=== PATIENT | female | born 1985 | race American Indian/Alaskan Native ===

== ENCOUNTER 2020-10-15 12:42 | Emergency (ER) | payer SELFPAY ==
[2020-10-15 13:29] VITALS: BP 117/84
[2020-10-15 14:34] LABS: Basophils % (Auto) 0.4 % (0.0-1.8); Eosinophils % (Auto) 0.4 % (0.0-4.3); Hematocrit 34.5 % (30.3-42.9); Hemoglobin 11.3 gm/dl (10.1-14.3); Lymphocytes # (Auto) 1.3 K/mm3 (1.2-5.4); Lymphocytes % (Auto) 22.8 % (13.4-35.0); Mean Corpuscular HGB Conc 33 % (30-34); Mean Corpuscular Volume 87 fl (79-97); Monocytes # (Auto) 0.4 K/mm3 (0.0-0.8); Monocytes % (Auto) 7.4 % (0.0-7.3); Platelet Count 276 K/mm3 (140-440); Red Blood Count 3.99 M/mm3 (3.65-5.03)
[2020-10-15 14:51] LABS: Red Cell Distribution Width 20.3 % (13.2-15.2)
[2020-10-15 14:53] LABS: Alanine Aminotransferase 6 units/L (7-56); Blood Urea Nitrogen 11 mg/dL (7-17); Calcium 8.8 mg/dL (8.4-10.2); Hemolysis Index 3
[2020-10-15 14:59] LABS: BUN/Creatinine Ratio 16
[2020-10-15 15:28] LABS: INR 1.04 (0.87-1.13); Partial Thromboplastin Time 24.7 Sec. (24.2-36.6)
[2020-10-15] MEDS ORDERED: SODIUM CHLORIDE 0.9% 1000 ML 1,000 ML IV ONE (15:40)
[2020-10-15] MEDS ORDERED: KETOROLAC 30 MG/1 ML INJ IV ONE (15:40)
--- NOTE | 2020-10-15 15:41 | Emergency Department Report ---
ED General Adult HPI - General Chief complaint: Dizziness Stated complaint: HEADACHE,DIZZY,PAIN IN BACK Time Seen by Provider: 10/15/20 14:06 Source: patient, family Mode of arrival: Ambulatory Limitations: No Limitations - History of Present Illness Initial comments: 35-year-old female with a past medical history of migraine headaches presents to the ER today with complaints of not feeling well. Patient states that she has been feeling well for the past 2 days. She complains mainly of lower back pain, migraines, intermittent dizziness (spinning sensation) and shortness of breath. Patient reports a history of migraines, but she states that she has not a flareup in a while. She used to be on medications for it but she does not recall the name of the medications. She denies any recent head injury. She reports pain underneath her left ribs worse with palpation and movement but she denies any cough, wheezing, URI symptoms, fever, chills, abdominal pain, nausea, vomiting, UTI symptoms. She denies any calf pain, or LE swelling. She denies any recent travel, or ill contacts. She states that her last menstrual cycle was September 29. She is not currently on control. 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 She states she drinks lots of water. MD Complaint: Migraine headache/low back/dizzy/shortness of breath -: days(s) (2) - Related Data Previous Rx's Medication Instructions Recorded Last Taken Type Butalb/Acetamin/Caff 50-325-40 1 each PO Q4H PRN #12 tablet 10/15/20 Unknown Rx [Fioricet 50-325-40] Ketorolac [Toradol] 10 mg PO Q6H PRN #20 tablet 10/15/20 Unknown Rx methOCARBAMOL [Robaxin TAB] 750 mg PO Q8H PRN #30 tablet 10/15/20 Unknown Rx Allergies Allergy/AdvReac Type Severity Reaction Status Date / Time No Known Allergies Allergy Unverified 10/15/20 13:26 ED Review of Systems ROS: Stated complaint: HEADACHE,DIZZY,PAIN IN BACK Other details as noted in HPI Comment: All other systems reviewed and negative Constitutional: denies: chills, fever Eyes: denies: eye pain, eye discharge, vision change ENT: denies: ear pain, throat pain, dental pain, hearing loss, epistaxis, congestion ED Past Medical Hx - Past Medical History Previous Medical History?: Yes Hx COPD: Yes (chronic bronchitis) - Surgical History Past Surgical History?: Yes Additional Surgical History: , left hand - Medications Home Medications: Home Medications Medication Instructions Recorded Confirmed Last Taken Type Butalb/Acetamin/Caff 50-325-40 1 each PO Q4H PRN #12 tablet 10/15/20 Unknown Rx [Fioricet 50-325-40] Ketorolac [Toradol] 10 mg PO Q6H PRN #20 tablet 10/15/20 Unknown Rx methOCARBAMOL [Robaxin TAB] 750 mg PO Q8H PRN #30 tablet 10/15/20 Unknown Rx ED Physical Exam - General Limitations: No Limitations General appearance: alert, in no apparent distress - Head Head exam: Present: atraumatic, normocephalic, normal inspection - Eye Eye exam: Present: normal appearance, PERRL, EOMI Pupils: Present: normal accommodation - ENT ENT exam: Present: normal exam, mucous membranes moist, TM's normal bilaterally - Neck Neck exam: Present: normal inspection, full ROM. Absent: meningismus - Respiratory Respiratory exam: Present: normal lung sounds bilaterally, chest wall tenderness (left anterior lower chest wall just underneath breast and left upper chest wall ). Absent: respiratory distress, wheezes, rales, rhonchi - Cardiovascular Cardiovascular Exam: Present: regular rate, normal rhythm, normal heart sounds - GI/Abdominal GI/Abdominal exam: Present: soft. Absent: distended, tenderness, guarding, rebound - Extremities Exam Extremities exam: Present: normal inspection, full ROM, normal capillary refill. Absent: pedal edema, joint swelling, calf tenderness - Back Exam Back exam: Present: normal inspection, full ROM, tenderness (Mild left lower lumbar area). Absent: CVA tenderness (R), CVA tenderness (L), vertebral tender ness - Neurological Exam Neurological exam: Present: alert, oriented X3, CN II-XII intact, normal gait - Psychiatric Psychiatric exam: Present: normal affect, normal mood - Skin Skin exam: Present: intact ED Course Vital Signs 10/15/20 13:28 Temperature 98.5 F Pulse Rate 80 Respiratory 16 Rate Blood Pressure 117/84 O2 Sat by Pulse 100 Oximetry ED Medical Decision Making - Lab Data Result diagrams: 10/15/20 14:06 10/15/20 14:06 - EKG Data -: EKG Interpreted by Me EKG shows normal: sinus rhythm (75) Rate: normal - EKG Data Interpretation: normal EKG - Radiology Data Radiology results: report reviewed Patient: ELIA YOON MR#: [id number] : 1985 Acct:[id number] Age/Sex: 35 / F ADM Date: 10/15/20 Loc: ED Attending Dr: Ordering Physician: REBA LOPEZ Date of Service: 10/15/20 Procedure(s): XR chest routine 2V Accession Number(s): [id number] cc: REBA LOPEZ Fluoro Time In Minutes: CHEST 2 VIEWS INDICATION / CLINICAL INFORMATION: SOB. COMPARISON: None available. FINDINGS: SUPPORT DEVICES: None. HEART / MEDIASTINUM: No significant abnormality. LUNGS / PLEURA: No significant pulmonary or pleural abnormality. No pneumothorax. ADDITIONAL FINDINGS: No significant additional findings. IMPRESSION: 1. No acute findings. Signer Name: Sky Cisneros MD Signed: 10/15/2020 4:28 PM Workstation Name: [id number] Transcribed By: SS Dictated By: Sky Cisneros MD Electronically Authenticated By: Sky Cisneros MD Signed Date/Time: 10/15/201627 DD/ 27 TD/TT: - Medical Decision Making labs/EKG/CXR reviewed -- nothing acute on work up today. The patient is neurologically intact, has a normal mental status and is ambulatory in the ER. She is currently resting comfortably and not in any acute distress. Her history, exam, diagnostic testing and the patient's current condition does not suggest meningitis, stroke, sepsis, subarachnoid hemorrhage, intracranial bleed, encephalitis, ACS/ND, PE (PERC 0) or other significant pathology that would warrant further testing, continued ED treatment, admission, neurological consultation or other specialist evaluation at this point. Discussed lab/ekg and imaging results with patient. Discussed suspected dx and tx plan with patient. Recommend f/u with her PCP. She expressed understanding of instructions and agreed with plan. She expressed understanding of instructions and agrees with plan. Pt was stable at time of d/c. Critical care attestation.: If time is entered above; I have spent that time in minutes in the direct care of this critically ill patient, excluding procedure time. ED Disposition Clinical Impression: Migraine headache, Low back pain, Chest wall pain Disposition: TO HOME OR SELFCARE Is pt being admited?: No Does the pt Need Aspirin: No Condition: Stable Instructions: Migraine Headache, [id number], Acute Back Pain, Adult, Chest Wall Pain, [id number], Nonspecific Chest Pain, Adult Additional Instructions: Take the Fioricet, Motrin and Robaxin as prescribed. Recommend that you drink lots of fluids. Follow-up closely with your primary care doctor. Return to the ER if your symptoms changes or worsens in any way. Prescriptions: Butalb/Acetamin/Caff 50-325-40 [Fioricet 50-325-40] 1 each PO Q4H PRN #12 tablet PRN Reason: Headache methOCARBAMOL [Robaxin TAB] 750 mg PO Q8H PRN #30 tablet PRN Reason: muscle pain Ketorolac [Toradol] 10 mg PO Q6H PRN #20 tablet PRN Reason: Pain Referrals: ALBERT ACKERMAN MD [Staff Physician] - 3-5 Days Forms: Work/School Release Form(ED) Time of Disposition: 17:37
--- NOTE | 2020-10-15 16:33 | XRay Report ---
CHEST 2 VIEWS INDICATION / CLINICAL INFORMATION: SOB. COMPARISON: None available. FINDINGS: SUPPORT DEVICES: None. HEART / MEDIASTINUM: No significant abnormality. LUNGS / PLEURA: No significant pulmonary or pleural abnormality. No pneumothorax. ADDITIONAL FINDINGS: No significant additional findings. IMPRESSION: 1. No acute findings. Signer Name: kSy Cisneros MD Signed: 10/15/2020 4:28 PM Workstation Name: [id number]
[2020-10-15 17:15] LABS: Bilirubin,Urine NEG (Negative); Blood,Urine SM (Negative); Color,Urine Yellow (Yellow); Mucus,Urine FEW /HPF; Protein,Urine <15 mg/dL mg/dL (Negative)
--- NOTE | 2020-10-17 09:45 | Electrocardiograph Report ---
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
== END 2020-10-15 17:43 | disposition home or self-care (01) ==
LOC: ED 12:42
DX: G43.909 Migraine, unspecified, not intractable, without status migrainosus (principal); M54.5 Low back pain; R07.89 Other chest pain; J44.9 Chronic obstructive pulmonary disease, unspecified; Z79.899 Other long term (current) drug therapy; Z98.890 Other specified postprocedural states
CPT/HCPCS: 36415; 71046; 80053; 81001; 83690; 84484; 84703; 85025; 85610; 85730; 93005; 96361; 96374; 99284; J1885; J7030